=== PATIENT | male | born 1965 | race Caucasian/White ===

== ENCOUNTER 2019-04-01 10:29 | Emergency (ER) | payer OTHER ==
--- NOTE | 2019-04-01 10:41 | PDOC ---
History of Present Illness - General Chief Complaint: Burn Stated Complaint: BURN ON MY HAND Time Seen by Provider: 04/01/19 10:30 History Source: Patient Exam Limitations: No Limitations - History of Present Illness Initial Comments: 04/01/19 10:36 Mr. Velazco is an otherwise healthy 53-year-old male presenting to the emergency department status post burn while at work. Patient is a [id number] male, who works at [employer]. He was attempting to transfer hot oil from a pot to another container. He was wearing gloves and accidentally spilled some of the hot oil onto the dorsum of his left hand. He immediately removed his gloves. He washed the area thoroughly with cold water. He then applied a get to the area of the burn. He denies injury to any other area. PMH: denies PSH: Appendectomy Meds: denies ALL: NKDA Social: FH: non contributory ROS: GENERAL/CONSTITUTIONAL: No: fever, chills. HEAD, EYES, EARS, NOSE AND THROAT: No: change in vision, ear pain, discharge, sore throat, throat swelling. CARDIOVASCULAR: No: chest pain, lightheadedness, palpitations, syncope RESPIRATORY: No: cough, shortness of breath, wheezing, hemoptysis, stridor. GASTROINTESTINAL: No: nausea, vomiting, diarrhea, abdominal cramping, rectal bleeding, constipation. GENITOURINARY: No: dysuria, hematuria, frequency, urgency, flank pain. MUSCULOSKELETAL: No: back pain, neck pain, joint pain, muscle swelling or pain SKIN: Yes: left hand burn No: rash NEUROLOGIC: No: headache, vertigo, paresthesias, weakness PE: GENERAL: The patient is in no acute distress. HEAD: Normal EYES: PERRLA, EOMI, sclera anicteric, conjunctiva clear. ENT: No lynne noted on face or nares NECK: Normal range of motion, supple LUNGS: Breath sounds equal, clear to auscultation bilaterally. HEART:Regular rate and rhythm, normal S1 and S2 without murmur, rub or gallop. ABDOMEN: Soft, nontender EXTREMITIES: Normal range of motion NEUROLOGICAL: Cranial nerves II through XII grossly intact. Normal speech. No focal neurological deficits. MUSCULOSKELETAL: see below SKIN: Left hand: middle and ring fingers are affected Dorsum of both fingers are erythematous There is a blister overlying the Proximal phalynx and crosses the PIP 04/01/19 10:44 Past History - Past Medical History Allergies/Adverse Reactions: Allergies Allergy/AdvReac Type Severity Reaction Status Date / Time No Known Allergies Allergy Verified 04/01/19 10:30 Home Medications: Ambulatory Orders Acetaminophen W/ Codeine #3 [Tylenol # 3 -] 1 tab PO BID #6 tablet MDD 2 Ibuprofen [Motrin -] 600 mg PO TID PRN #21 tablet 04/01/19 Medical Decision Making - Medical Decision Making 04/01/19 11:24 Pt presents to the ER with a superficial partial thickness burn with blisters on his non dominant hand pt wound cleaned with water Bacitracin applied Call placed to wound center at [facility] Pt can be seen by Dr Hood He has made an appointment with them I have explained to this patient that I believe his wounds will heal However, the wounds are located over the dorsum of two of his digits If the wounds declare themselves and are deeper than they currently are, this could pose a long-term issue for him as the skin heals (possible contractures) Pt has an appointment for 1 week from now Pt asked to monitor for signs of infection Clinical impression: Partial thickness burn to hand *DC/Admit/Observation/Transfer Diagnosis at time of Disposition: Burn of hand including fingers Qualifiers: Encounter type: initial encounter Laterality: left Burn degree: partial thickness (2nd degree) Qualified Code(s): T23.202A - Burn of second degree of left hand, unspecified site, initial encounter - Discharge Dispostion Disposition: HOME Condition at time of disposition: Stable Decision to Admit order: No - Prescriptions Prescriptions: Acetaminophen W/ Codeine #3 [Tylenol # 3 -] 1 tab PO BID #6 tablet MDD 2 Ibuprofen [Motrin -] 600 mg PO TID PRN #21 tablet PRN Reason: Pain - Referrals Referrals: Erickson Hood MD [Staff Physician] - Yoandy Medina MD [Staff Physician] - - Patient Instructions Printed Discharge Instructions: How to Take Care of a Burn, DI for Lynne Additional Instructions: Ms Velazco Thank you for coming in to the ER today I am sorry you got this burn Please be sure to : Keep your hand clean Apply bacitracin to the burn twice per day DO NOT wash dishes or soak hands in dirty water Monitor for signs of infection - red skin around the wound, pus, warmth If you notice this, PLEASE return to the ER for re evaluation You can take Motrin for pain For severe pain, please take tylenol #3 (AVOID DRIVING OR ALCOHOLIC DRINKS) Please be sure to follow up with the [facility] wound center their number is Your appointment is Apr 4th Please be sure to find out where your appointment is - Post Discharge Activity Forms/Work/School Notes: Back to Work Activity Comments: 04/01/19 11:35 If you return to work sooner than specified in the note, please avoid placing your hands in dirty water
[2019-04-01] MEDS ORDERED: IBUPROFEN 600 MG TABLET (FP) PO ONE ×2 (10:42→10:46)
[2019-04-01 10:45] VITALS: TEMP 98; BMI 25.1
[2019-04-01 11:10] VITALS: BP 150/115; PULSE 70
== END 2019-04-01 12:19 | disposition home or self-care (01) ==
LOC: FER 10:29
DX: T23.202A Burn of second degree of left hand, unspecified site, initial encounter (principal); X10.1XXA Contact with hot food, initial encounter; Y93.89 Activity, other specified; Y92.89 Other specified places as the place of occurrence of the external cause; Y99.0 Civilian activity done for income or pay
CPT/HCPCS: 99282-25